=== PATIENT | female | born 2000 ===

== ENCOUNTER 2023-11-17 10:27 | Day surgery (SDC) | payer BC ==
[~2023-11-17 10:27] MED LIST: HYDROmorphone 0.5 MG/0.5 ML SYRINGE IVP PRN; LIDOCAINE 1% (10MG/ML) FOR IV START INTRADERMA PRN; droPERidol 5 MG/2 ML VIAL IVP ONE
[2023-11-17] MEDS: SCOPOLAMINE 1 MG/72 HR PATCH TRANSDERM STA (10:54)
[2023-11-17] MEDS: ONDANSETRON 4 MG/2 ML VIAL IVP ONE (11:06)
[2023-11-17] MEDS: DEXAMETHASONE SOD PHOSPHATE 4 MG/ML 1 ML VIAL IV ONE (11:06)
[2023-11-17] MEDS: LACTATED RINGERS 1,000 ML IV SCH (11:06)
[2023-11-17] MEDS: IV FLUID CONTINUATION 1,000 ML IV ONE (11:07)
[2023-11-17] MEDS ORDERED: PROPOFOL 10 MG/ML 20 ML VIAL IV ONE (12:08)
[2023-11-17] MEDS ORDERED: MIDAZOLAM 2 MG/2 ML VIAL ONE (12:08)
[2023-11-17] MEDS ORDERED: fentaNYL (PF) 50 MCG/ML 2 ML AMP ONE (12:08)
[2023-11-17] MEDS ORDERED: LIDOCAINE 1% INJ 10MG/ML (20 ML MDV) ONE (12:08)
[2023-11-17] MEDS ORDERED: KETOROLAC 30 MG/ML 1 ML VIAL ONE (12:08)
[2023-11-17 12:45] VITALS: TEMP 97
[2023-11-17 13:04] VITALS: RESP 16
--- NOTE | 2023-11-17 13:12 | P.OP ---
Date of Procedure: 11/17/23 Preoperative Diagnosis: Incomplete Postoperative Diagnosis: Same Procedure(s) Performed: Suction dilation and curettage Anesthesia: MAC Surgeon: Annalee Michelle Estimated Blood Loss (ml): 10 IV fluids (ml): 500 Urine output (ml): 200 (Clear yellow) Pathology: other (Uterine contents) Condition: stable Disposition: PACU Indications for Procedure: 23-year-old G1 with known failed approximately 1 month ago. Patient states she did feel that she passed some tissue but over the last week has noted increased cramping with spotting and fevers. Patient noted her highest temp to be 100.5. It did come down with oral ibuprofen. On ultrasound retained products were noted therefore patient was counseled on suction dilation and curettage given length of time from diagnosis of failed . Patient stated understanding and wishes to proceed. Operative Findings: Moderate amount of products of conception were appreciated Description of Procedure: Patient was taken back to the operating suite where general anesthesia was obtained without difficulty by the anesthesia department. She was prepped and draped in the normal sterile fashion in the dorsal lithotomy position. A red rubber catheter was used to drain the bladder of clear yellow urine. A weighted speculum is placed in the posterior vaginal vault the antilipid the cervix was visualized and grasped with a single-tooth tenaculum. The endocervical canal was then serially dilated. An 8 curved suction curette was placed through the cervix and toward the endometrial cavity. After multiple passes a moderate amount of products of conception were appreciated. On the last pass, no further products were appreciated. At this time all instruments were removed from the patient's vaginal vault the anterior lip was noted to be hemostatic after removal of the single-tooth tenaculum. All counts were noted correct x 2. Minimal bleeding was noted from the cervical os. Patient tolerated procedure well and was taken to recovery room awake in stable condition.
[2023-11-17 13:48] VITALS: BP 113/78; PULSE 72
== END 2023-11-17 14:10 | disposition home or self-care (01) ==
LOC: OR 10:27
PROVIDERS: ATTEND Obstetrics & Gynecology Obstetrics
DX: O03.4 Incomplete spontaneous abortion without complication
CPT/HCPCS: 88305

== ENCOUNTER → 2024-01-21 | Outpatient (CLI) | payer BC | END | disposition home or self-care (01) | LOC: LABWHC1 07:55 | PROVIDERS: ATTEND Obstetrics & Gynecology Obstetrics | DX: Z34.81 Encounter for supervision of other normal pregnancy, first trimester (principal) | CPT/HCPCS: 36415; 84702 ==